=== PATIENT | female | born 1980 | race Two or more races ===

== ENCOUNTER 2016-09-12 09:50 | Observation (INO) | payer MEDICAID ==
[2016-09-12 10:47] LABS: Urine RBC None Seen /hpf (0 - 4)
[2016-09-12 11:12] LABS: Urine Bilirubin Negative (Negative); Urine Blood Negative /uL (Negative); Urine Color Yellow (Yellow); Urine Ketone Negative (Negative); Urine Mucus FEW (None Seen); Urine Nitrite Negative (Negative); Urine Squamous Epithelial Cell FEW /hpf (<5); Urine Urobilinogen Normal (Negative); Urine pH 6.5 (5.0-8.0)
[2016-09-12 11:14] LABS: Urine Glucose 1+ mg/dL (Normal)
== END 2016-09-12 12:05 | disposition home or self-care (01) | DRG 566 ==
LOC: LDRP 09:50
PROVIDERS: ADMIT Specialist; ATTEND Specialist
DX: O26.893 Other specified pregnancy related conditions, third trimester (principal); Z3A.31 31 weeks gestation of pregnancy
CPT/HCPCS: 59025; 76815; 81001; 81002; 82948; 82962; G0378

== ENCOUNTER 2016-10-30 12:10 | Observation (INO) | payer MEDICAID | END 2016-10-30 13:10 | disposition home or self-care (01) | DRG 566 | LOC: LDRP 12:10 | PROVIDERS: ADMIT Obstetrics & Gynecology; ATTEND Obstetrics & Gynecology | DX: O62.9 Abnormality of forces of labor, unspecified (principal); Z3A.37 37 weeks gestation of pregnancy | CPT/HCPCS: 59025; 81002; G0378 ==

== ENCOUNTER 2016-11-03 17:55 | Inpatient (IN) | payer MEDICAID | END 2016-11-03 19:23 | disposition home or self-care (01) | DRG 566 | LOC: LDRP 17:55 | PROVIDERS: ADMIT Specialist; ATTEND Specialist | DX: O26.893 Other specified pregnancy related conditions, third trimester (principal); M54.9 Dorsalgia, unspecified; Z3A.38 38 weeks gestation of pregnancy | CPT/HCPCS: 59025; 81002; 82962 ==

== ENCOUNTER 2016-11-10 21:08 | Inpatient (IN) | payer MEDICAID ==
[~2016-11-10] VITALS: Ht 152.4 cm; Wt 70.8 kg
[2016-11-10] MEDS ORDERED: LACTATED RINGER'S 1,000 ML IV SCH (22:47)
[2016-11-10] MEDS ORDERED: LACT. RINGERS/OXYTOCIN 20UNITS 1,000 ML IV SCH (22:47)
[2016-11-10] MEDS ORDERED: WITCH HAZEL-GLYCERIN PAD TOP PRN (23:00)
[2016-11-10] MEDS ORDERED: LIDOCAINE 2%HCL (LOCAL ANESTH.) INJ 20ML MDV IJ ONE (23:00)
[2016-11-10] MEDS ORDERED: DERMOPLAST 60ML BOTTLE TOP PRN (23:00)
[2016-11-10] MEDS ORDERED: PHISODERM TOP SOLN 240ML BTL TOP PRN (23:00)
[2016-11-10 23:38] LABS: INR 0.9 (0.9-1.15); Partial Thromboplastin Time 26.6 sec (22.64-33.71); Prothrombin Time 9.8 sec (9.37-12.3)
[2016-11-10 23:41] LABS: Basophils # (auto) 0 uL; Basophils % (auto) 0.1 % (0.0-2.0); CONDITION Y; Eosinophils # (auto) 0 uL; Eosinophils % (auto) 0.4 % (0.0-7.0); Hematocrit 35.5 % (36.0-46.0); Hemoglobin 11.9 g/dL (12.2-16.2); Lymphocytes # (auto) 1.3 uL; Lymphocytes % (auto) 13.3 % (10.0-50.0); Mean Corpuscular Hemoglobin 30.7 pg (28.0-32.0); Mean Corpuscular Hgb Conc. 33.4 g/dL (32.0-36.0); Mean Corpuscular Volume 91.7 fL (80.0-100.0); Mean Platelet Volume 9.9 fL (7.4-10.4); Monocytes # (auto) 0.6 uL; Monocytes % (auto) 6.1 % (0.0-12.0); Neutrophils # (auto) 8.1 uL; Neutrophils % (auto) 80.1 % (37.0-80.0); Platelet Count (auto) 146 10^3/uL (140-450); Red Cell Distribution Width 17.7 % (11.6-16.0); White Blood Cell 10.1 10^3/uL (4.4-10.8)
[2016-11-11] LABS: Albumin 2.8 g/dL (3.4-5.0); Calcium 8.1 mg/dL (8.5-10.1); Potassium 3.4 mmol/L (3.5-5.1)
[2016-11-11] MEDS ORDERED: PROMETHAZINE HCL 25 MG/ML 1ML IV ONE
[2016-11-11] MEDS ORDERED: PROMETHAZINE HCL 25 MG/ML 1ML ONE
[2016-11-11] MEDS ORDERED: NALBUPHINE HCL 10 MG/1ml INJECTION IV PRN
[2016-11-11] MEDS ORDERED: NALBUPHINE HCL 10 MG/1ml INJECTION ONE (00:01)
[2016-11-11 00:05] LABS: Bilirubin, Total 0.3 mg/dL (0.2-1.0); Total Protein 6.6 g/dL (6.4-8.2)
[2016-11-11] MEDS ORDERED: LIDOCAINE HCL 2 %PF INJ 10ML AMP IJ ONE (00:30)
[2016-11-11] MEDS ORDERED: fentaNYL CITRATE 100 MCG/2 ML VL IV ONE ×2 (00:30→02:00)
[2016-11-11] MEDS ORDERED: NALOXONE HCL 0.4 MG/ML VIAL IV ONE ×2 (00:30→02:00)
[2016-11-11] MEDS ORDERED: ePHEDrine SULFATE 50 MG/ML AMP IV ONE ×2 (00:30→02:00)
[2016-11-11] MEDS ORDERED: fentaNYL W ROPIVACAINE 150 ML EPI SCH ×2 (00:30→02:00)
[2016-11-11 00:41] LABS: Urine Bilirubin Negative (Negative); Urine Color Yellow (Yellow); Urine Ketone TRACE (Negative); Urine Mucus FEW (None Seen); Urine Nitrite Negative (Negative); Urine RBC 18 /hpf (0 - 4); Urine Squamous Epithelial Cell FEW /hpf (<5); Urine Urobilinogen Normal (Negative); Urine pH 6.5 (5.0-8.0)
[2016-11-11 00:42] LABS: Urine Blood 1+ /uL (Negative); Urine Glucose 3+ mg/dL (Normal)
[2016-11-11] MEDS ORDERED: SODIUM CHLORIDE 0.9% 500 ML IV PRN (01:48)
[2016-11-11] MEDS ORDERED: ACETAMINOPHEN 325 MG TAB PO PRN (06:00)
[2016-11-11] MEDS ORDERED: IBUPROFEN 600 MG TAB PO PRN (06:00)
[2016-11-11 11:59] VITALS: BP 118/68
[2016-11-11 15:58] VITALS: BP 125/69
[2016-11-11 18:33] VITALS: BP 110/70
[2016-11-11 23:10] VITALS: BP 116/64
[2016-11-12 03:20] VITALS: BP 103/70
[2016-11-12 08:00] VITALS: BP 111/67
[2016-11-12] MEDS ORDERED: TETANUS-DIPTH-ACEL PERTUSSIS 0.5ML SYRG IM ONE (12:00)
== END 2016-11-12 13:20 | disposition home or self-care (01) | DRG 560 ==
LOC: OBSVTOIN 21:08 → LDRP 21:08
PROVIDERS: ADMIT Specialist; ATTEND Specialist
PROC: 10E0XZZ Delivery of Products of Conception, External Approach (ICD-10-PCS; principal; 2016-11-11)
PROC: 00HU33Z Insertion of Infusion Device into Spinal Canal, Percutaneous Approach (ICD-10-PCS; 2016-11-11)
PROC: 3E0R3CZ (ICD-10-PCS; 2016-11-11)
DX: O80 Encounter for full-term uncomplicated delivery (principal); Z88.8 Allergy status to other drugs, medicaments and biological substances; Z37.0 Single live birth; Z3A.39 39 weeks gestation of pregnancy; Z91.041 Radiographic dye allergy status
CPT/HCPCS: 36415; 51702; 59025; 59409; 62282; 80053; 80307; 81001; 81002; 82948; 82962; 85025; 85610; 85730; 86850; 86900; 86901; 90472; 90715; 94762; 96361; 96366; J2590; J3010

== ENCOUNTER 2019-10-28 20:36 | Emergency (ER) | payer MEDICAID ==
[~2019-10-28] VITALS: Ht 152.4 cm; Wt 60.8 kg
[2019-10-28 21:27] LABS: Urine Bacteria FEW /hpf (None Seen); Urine Blood Negative /uL (Negative); Urine Mucus FEW (None Seen); Urine Specific Gravity 1.027 (1.001-1.035); Urine WBC 2 /hpf (0 - 5)
[2019-10-28 21:50] LABS: Basophils # (auto) 0 10 ^3/uL (0-0.2); Basophils % (auto) 0.6 % (0.0-2.0); Eosinophils # (auto) 0.2 10 ^3/uL (0-0.8); Eosinophils % (auto) 2.9 % (0.0-7.0); Hematocrit 39.2 % (36.0-46.0); Hemoglobin 13.2 g/dL (12.2-16.2); Lymphocytes # (auto) 2.3 10 ^3/uL (0.4-5.4); Lymphocytes % (auto) 34.3 % (10.0-50.0); Mean Corpuscular Hemoglobin 30.4 pg (28.0-32.0); Mean Corpuscular Hgb Conc. 33.7 g/dL (32.0-36.0); Mean Corpuscular Volume 90.2 fL (80.0-100.0); Monocytes # (auto) 0.5 10 ^3/uL (0-1.3); Monocytes % (auto) 8.2 % (0.0-12.0); Neutrophils # (auto) 3.6 10 ^3/uL (1.6-8.6); Nucleated Red Blood Cells % 0.1 %; Platelet Count (auto) 176 10^3/uL (140-450); Red Blood Cells 4.34 10^6/uL (4.0-5.20); Red Cell Distribution Width 14.3 % (11.8-14.3); White Blood Cell 6.6 10^3/uL (4.4-10.8)
[2019-10-28 22:09] LABS: Albumin 3.8 g/dL (3.4-5.0); BUN/Creatinine Ratio 23.6; Calcium 8.7 mg/dL (8.5-10.1); Potassium 3.9 mmol/L (3.5-5.1)
[2019-10-28 22:12] LABS: Bilirubin, Total 0.2 mg/dL (0.2-1.0); Total Protein 7.6 g/dL (6.4-8.2)
[2019-10-28 23:31] VITALS: BP 126/76
== END 2019-10-29 00:04 | disposition home or self-care (01) ==
LOC: ER 20:38
DX: J01.90 Acute sinusitis, unspecified (principal); N39.0 Urinary tract infection, site not specified
CPT/HCPCS: 36415; 71045; 80053; 81001; 84702; 85025

== ENCOUNTER 2019-11-25 16:56 | Emergency (ER) | payer MEDICAID ==
[~2019-11-25] VITALS: Ht 152.4 cm; Wt 60.8 kg
[2019-11-25 17:10] VITALS: BP 139/90
== END 2019-11-25 18:32 | disposition home or self-care (01) ==
LOC: ER 16:56
DX: J02.9 Acute pharyngitis, unspecified (principal); F41.9 Anxiety disorder, unspecified; Z91.041 Radiographic dye allergy status
CPT/HCPCS: 71045